=== PATIENT | male | born 1955 | race Caucasian/White ===

== ENCOUNTER 2022-08-03 09:52 | Outpatient (CLI) | payer MEDICARE ==
--- NOTE | 2022-08-03 18:30 | XRAY Report ---
PROCEDURE: Shoulder 3 View RT INDICATIONS: SHOULDER PAIN,RIGHT TECHNIQUE: 4 views of the shoulder were acquired. COMPARISON: None. FINDINGS: Bones: No fractures or dislocations. No suspicious bony lesions. Visualized ribs appear intact. E nd-stage degenerative arthritis of the glenohumeral joint with large osteophyte and joint space oblit eration. Soft tissues: No suspicious soft tissue calcifications. 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 Reviewed by: Kahlil Guido MD on 08/03/2022 6:29 PM PST Approved by: Kahlil Guido MD on 08/03/2022 6:29 PM PST Station ID: [id number]
== END 2022-08-03 09:53 | disposition home or self-care (01) ==
LOC: DI.S 09:52
PROVIDERS: ATTEND Physician Assistant Surgical
DX: M19.011 Primary osteoarthritis, right shoulder (principal)